=== PATIENT | female | born 1945 | race Caucasian/White ===

== ENCOUNTER 2018-03-09 12:50 | Emergency (ER) | payer OTHER ==
[~2018-03-09] VITALS: Ht 160 cm; Wt 84.0 kg
[~2018-03-09 12:50] MED LIST: ATEN50TA PO; CALCTAB80 PO; CLAR10CA3 PO; DENO60P SQ; FEMA2.5T PO; LISI10TA PO; LORA1POW7; MULTTAB24 PO; PROB1TAB4; ZOLO25TA PO
[2018-03-09 13:00] VITALS: BP 156/77; PULSE 85; RESP 16; TEMP 98.6; O2SAT 96
[2018-03-09] MEDS ORDERED: TYLE325T PO (13:14)
--- NOTE | 2018-03-09 13:44 | PD ---
HPI Chief Complaint: Laceration/Skin Injury Time Seen by Provider: 13:07 Travel History International Travel<30 days: No Contact w/Intl Traveler<30days: No Traveled to known affect area: No History of Present Illness HPI 73-year-old female presents emergency department for evaluation of laceration to the scalp after fall that occurred just prior to arrival. Patient states that she tripped over some O2 tanks, landing on the back of her head. She denies loss of consciousness, headache, blurred vision. She denies numbness tingling the extremities. Denies any weakness. Denies neck or back pain. Admits to having a "stiff neck" but does have full range of motion of her neck. Patient has history of breast cancer and is currently in treatment for remission. Says she also has borderline hypertension. Denies use of blood thinners. She has no other complaints today. PFSH Past Medical History Arthritis: Yes Cancer: Yes (BREAST) Chemotherapy: Yes Diminished Hearing: No Hypertension: Yes Immunizations Current: Yes Radiation Therapy: Yes Tetanus Vaccination: > 5 Years Influenza Vaccination: Yes ?: Not Menopausal: Yes Past Surgical History Abdominal Surgery: Yes (APPENDIX) Appendectomy: Yes Gynecologic Surgery: Yes (BILAT MASTECTOMIES) Mastectomy: Yes (BILATERAL) Oral Surgery: Yes (TOOTH IMPLANTS) Social History Alcohol Use: No Tobacco Use: No Substance Use: No Allergies-Medications (Allergen,Severity, Reaction): Coded Allergies: penicillin G (Verified Allergy, Severe, 03/09/18) latex (Verified Allergy, Unknown, 03/09/18) Reported Meds & Prescriptions Reported Meds & Active Scripts Active Reported Tylenol (Acetaminophen) 325 Mg Tab 325 Mg PO Q4H PRN Zoloft (Sertraline HCl) 25 Mg Tab 25 Mg PO DAILY Multi For Her (Multiple Vitamins W/ Minerals) 1 Tab Tab PO DAILY Calcium 1000 + D (Calcium Carbonate-Cholecalciferol) 1,000-800 Mg-Unit Tab 1 Tab PO DAILY Claritin (Loratadine) 10 Mg Cap 10 Mg PO DAILY Lisinopril-Hctz 10-12.5 Mg Tab 1 Tab PO DAILY Femara (Letrozole) 2.5 Mg Tab PO DAILY Prolia Inj (Denosumab) 60 Mg/Ml Inj Mg SQ Q180D Review of Systems Except as stated in HPI: all other systems reviewed are Neg Physical Exam Narrative GENERAL: Well developed, well-nourished in no apparent distress SKIN: Focused skin assessment warm/dry. HEAD: Atraumatic. Normocephalic. EYES: Pupils equal and round. No scleral icterus. No injection or drainage. PERRLA ENT: No nasal bleeding or discharge. Mucous membranes pink and moist. NECK: Trachea midline. No JVD. No midline tenderness CARDIOVASCULAR: Regular rate and rhythm. No murmur appreciated. RESPIRATORY: No accessory muscle use. Clear to auscultation. Breath sounds equal bilaterally. BACK: No CVA tenderness. No rash. No point tenderness on palpation of the spine. MUSCULOSKELETAL: No obvious deformities. No clubbing. No cyanosis. No edema. NEUROLOGICAL: Awake and alert. No obvious cranial nerve deficits. Motor grossly within normal limits. Normal speech. PSYCHIATRIC: Appropriate mood and affect; insight and judgment normal. Data Data Last Documented VS Vital Signs Date Time Temp Pulse Resp B/P (MAP) Pulse Ox O2 Delivery O2 Flow Rate FiO2 03/09/18 13:00 98.6 85 16 156/77 (103) [address] Brain W/O Iv Contrast(Rout) (03/09/18 ) Ct Cerv Spine W/O Contrast (03/09/18 ) Tetanus/Diphtheria Tox Adult (Tetanus/Di (03/09/18 14:30) Ed Discharge Order (03/09/18 14:49) [facility] Medical Decision Making Medical Screen Exam Complete: Yes Emergency Medical Condition: Yes Differential Diagnosis Scalp laceration, ICH, head contusion, skull fracture Narrative Course 73-year-old female presents emergency department for evaluation of a laceration to the posterior scalp. Patient says she had mechanical fall falling backwards. Denies loss of consciousness, blurred vision, headache. She denies neck or back pain. She has no other complaints today actually. Vital signs are stable. Physical exam findings consistent with laceration to the posterior scalp. Neuro exam unremarkable. No other injuries noted. Laceration repair completed. Tetanus vaccination administered. Patient will be discharged with instructions for wound care. Advised to monitor for signs of head injury. Advised that she follow-up with a primary care physician. Return for worsening or persistent symptoms. Procedures Procedure Narrative LACERATION LOCATION: parietal Scalp LENGTH: 2 cm NUMBER OF STITCHES/VICKY: 6 vicky REPAIR: The area of the laceration was prepped with Betadine and sterilely draped. The laceration was infiltrated with 1% lidocaine with epinephrine. The wound was copiously irrigated and explored without evidence of foreign body, tendon injury or neurovascular injury. The wound was closed using vicky. This was a single layer repair. A sterile dressing was applied. The patient was advised to keep the dressing clean and dry. Patient tolerated the procedure well. Diagnosis Primary Impression: Scalp laceration Qualified Codes: S01.01XA - Laceration without foreign body of scalp, initial encounter Additional Impression: Head contusion Qualified Codes: S00.03XA - Contusion of scalp, initial encounter Referrals: Primary Care Physician Additional Instructions: Follow up with your primary care physician within 2-3 days. Keep area clean and dry for 24 hours. After 24 hours, you may bathe as normal but dry the area thoroughly. You may use [id number] triple antibiotic ointments for your injury daily. Change dressings daily. Staple removal in approximately 5 days. If you developed increased redness, swelling, or pain return to the emergency department as this could be a sign of infection. Disposition: 01 DISCHARGE HOME Condition: Stable Lili Sotomayor March 09, 2018 13:44
[2018-03-09] MEDS ORDERED: TETANUS/DIPHTHERIA TOXOID ADULT 0.5 ML VIAL IM ONE (14:30)
--- NOTE | 2018-03-09 14:30 | RADRPT ---
EXAM DATE/TIME: 03/09/2018 13:45 [facility] COMPARISON: No previous studies available for comparison. INDICATIONS : Trauma. Fall. Head laceration. RADIATION DOSE: 25.53 CTDIvol (mGy) MEDICAL HISTORY : Carcinoma, breast. Hypertension. SURGICAL HISTORY : Mastectomy, bilateral. Appendectomy. ENCOUNTER: Initial ACUITY: 1 day PAIN SCALE: 2/10 LOCATION: neck TECHNIQUE: Volumetric scanning of the cervical spine was performed. Multiplanar reconstructions in the sagittal, coronal and oblique axial planes were performed. Using automated exposure control and adjustment o f the mA and/or kV according to patient size, radiation dose was kept as low as reasonably achievable to obtain optimal diagnostic quality images. DICOM format image data is available electronically f or review and comparison. FINDINGS: No acute fracture. Minimal degenerative anterolisthesis of C3 on C4. No canal stenosis. No prevertebr al soft tissue swelling. CONCLUSION: 1. No acute fracture. Minimal degenerative anterolisthesis of C3 on C4. Aldair Berry MD on March 09, 2018 at 14:19 Board Certified Radiologist. This report was verified electronically.
--- NOTE | 2018-03-09 14:32 | RADRPT ---
EXAM DATE/TIME: 03/09/2018 13:45 [facility] COMPARISON: No previous studies available for comparison. INDICATIONS : Trauma. Fall. Head laceration. RADIATION DOSE: 54.75 CTDIvol (mGy) MEDICAL HISTORY : Hypertension. Carcinoma, breast. SURGICAL HISTORY : Mastectomy, bilateral. Appendectomy. ENCOUNTER: Initial ACUITY: 1 day PAIN SCALE: 2/10 LOCATION: cranial TECHNIQUE: Multiple contiguous axial images were obtained of the head. Using automated exposure control and adj ustment of the mA and/or kV according to patient size, radiation dose was kept as low as reasonably a chievable to obtain optimal diagnostic quality images. DICOM format image data is available electro nically for review and comparison. FINDINGS: CEREBRUM: The ventricles are normal for age. 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 No evidence of midline shift, mass lesion, hemorrhage or a cute infarction. No extra-axial fluid collections are seen. POSTERIOR FOSSA: The cerebellum and brainstem are intact. The 4th ventricle is midline. The cerebellopontine angle i s unremarkable. Megacisterna magna, an anatomic variant. EXTRACRANIAL: The visualized portion of the orbits is intact. SKULL: The calvaria is intact. No evidence of skull fracture. Superficial skin vicky in the posterior per ivertex distribution CONCLUSION: 1. Superficial skin vicky in the posterior perivertex distribution. No acute fracture or intracrani al trauma. 2. Mild chronic changes with a lacunar type infarct in the anterior aspect of the left internal capsu le and the ipsilateral anterior external capsule. Zac Arias MD on March 09, 2018 at 14:20 Board Certified Radiologist. This report was verified electronically.
== END 2018-03-09 15:09 | disposition home or self-care (01) ==
LOC: PHEFT 12:50
DX: S01.01XA Laceration without foreign body of scalp, initial encounter (principal); W18.09XA Striking against other object with subsequent fall, initial encounter; R03.0 Elevated blood-pressure reading, without diagnosis of hypertension; C50.919 Malignant neoplasm of unspecified site of unspecified female breast; Z90.13 Acquired absence of bilateral breasts and nipples; Z23 Encounter for immunization
CPT/HCPCS: 12001; 70450; 72125; 90471; 90714